=== PATIENT | male | born 1955 | race Caucasian/White ===

== ENCOUNTER 2019-04-24 12:41 | Observation (INO) | payer OTHER ==
[~2019-04-24] VITALS: Ht 172.7 cm; Wt 117.5 kg
[~2019-04-24 12:41] MED LIST: AMLODIPINE; ASPIRIN EC81 M1; ATORVASTATIN CA80 MG PO; B-COMPLEX WITH1 EAC3 PO; BENICAR; BENICAR40 MG PO; CEPHALEXIN 500500 M3 PO; CIPRO500 MG PO; COREG6.25 MG PO; FLOMAX0.4 MG PO; HUMALOG100 UNIT/1 SUBQ; HYDROCODONE-AP1 EAC6 PO; IBUPROFEN 800800 M1 PO; LANTUS; LEVEMIR100 UNIT/1 SUBQ; LIPITOR; NAPROSYN500 MG PO; NORCO 5-325 TA1 EACH PO; NORVASC5 MG PO; NOVOLOG100 UNIT/1 SUBQ; ONDANSETRON HCL4 M3 PO; PERCOCET 5-3251 EACH PO; PHENERGAN 25 MG25 M1 PO; PROSCAR 5MG TABL5 MG PO; TAMSULOSIN HCL0.4 MG PO
[2019-04-24 12:58] VITALS: BP 145/91
[2019-04-24] MEDS ORDERED: MICARDIS 80 MG80 MG PO (13:12)
[2019-04-24] MEDS ORDERED: METFORMIN HCL500 M3 PO (13:12)
[2019-04-24] MEDS ORDERED: PROSCAR 5MG TABL5 M1 PO (13:12)
[2019-04-24 13:24] LABS: ABSOLUTE BASOPHILS 0.1 thou/uL (0.0-0.2); ABSOLUTE EOSINOPHILS 0.2 thou/uL (0.0-0.7); ABSOLUTE LYMPHOCYTES 1.7 thou/uL (0.8-5.3); ABSOLUTE MONOCYTES 0.7 thou/uL (0.0-1.2); ABSOLUTE NEUTROPHILS 9.5 thou/uL (1.6-8.1); BASOPHILS 0.7 %; EOSINOPHILS 1.8 %; HEMATOCRIT 40.6 % (42.0-52.0); HEMOGLOBIN 13.9 gm/dL (14.0-18.0); LYMPHOCYTES 13.7 %; MCH 29.6 pg (26.0-34.0); MCHC 34.3 g/dL (28.0-37.0); MCV 86.5 fL (80.0-100.0); MONOCYTES 6.1 %; MPV 8.3 fl. (7.2-11.1); NUCLEATED RBCS 0 /100WBC; PLATELET COUNT* 287 thou/uL (150-400); POLYS 77.7 %; RBC 4.69 mil/uL (4.50-6.00); RDW-CV 13.6 % (10.5-14.5); WBC 12.2 thou/uL (4.0-11.0)
[2019-04-24 13:34] LABS: CREATININE 1.4 mg/dL (0.6-1.3); POTASSIUM 4.4 mmol/L (3.5-5.1)
[2019-04-24 13:46] LABS: ALBUMIN 3.8 g/dL (3.4-5.0); TOTAL BILIRUBIN 1.9 mg/dL (<0.1-1.0)
[2019-04-24 14:11] LABS: URINE BILIRUBIN NEGATIVE (Negative); URINE BLOOD TRACE (Negative); URINE CLARITY CLEAR; URINE COLOR YELLOW; URINE GLUCOSE-RANDOM NEGATIVE (Negative); URINE KETONES NEGATIVE (Negative); URINE LEUKOCYTES-REFLEX NEGATIVE (Negative); URINE NITRITE-REFLEX NEGATIVE (Negative); URINE PROTEIN 1+ (Negative); URINE SPECIFIC GRAVITY >= 1.030 (1.005-1.030); URINE UROBILINOGEN 0.2 E.U./dl (0.2-1.0)
--- NOTE | 2019-04-24 15:19 | EKG ---
[place] [address] ELECTROCARDIOGRAM REPORT Name: JOE CHAPMANJONN BANG [facility] [id number] Admission: 04/24/19 Attend Phys: Discharge: Date of : 57 Report #: [id number] THIS REPORT FOR: //name// [facility] ED Test Date: 2019-04-24 Test Time: 13:35:09 Pat Name: JOSE CHAPMAN Department: Room: Gender: M Ergonomist: TG : 1955 Requested By: Sophia Chambers Order Number: [id number] MD: Rufino Maxwell Measurements Intervals Hustler Rate: 65 P: 37 WI: 188 QRS: 25 QRSD: 97 T: 24 QT: 423 QTc: 440 Interpretive Statements Sinus rhythm Possible left atrial enlargement Baseline wander in lead(s) V5 Compared to ECG 09/16/2014 11:06:36 No significant changes Electronically Signed On 04-24-2019 15:18:44 CASHIER ASSISTANT by Rufino Maxwell [email or web address] <ELECTRONICALLY SIGNED> By: Rufino Maxwell MD, [facility] 04/24/19 1518 1335 Rufino Maxwell MD, FACC /EPI
[2019-04-24 18:28] LABS: CALCIUM 8.4 mg/dL (8.5-10.1); CREATININE 1.4 mg/dL (0.6-1.3); MAGNESIUM 1.4 mg/dL (1.8-2.4); POTASSIUM 4.5 mmol/L (3.5-5.1)
[2019-04-24 21:00] VITALS: BP 136/101
[2019-04-24 21:10] VITALS: BP 148/77
[2019-04-25 00:19] VITALS: BP 166/87
[2019-04-25 04:15] VITALS: BP 181/87
[2019-04-25 05:48] LABS: MCH 29.7 pg (26.0-34.0); MCHC 34.3 g/dL (28.0-37.0); MCV 86.5 fL (80.0-100.0); MPV 8.8 fl. (7.2-11.1); RBC 4.39 mil/uL (4.50-6.00); WBC 12.3 thou/uL (4.0-11.0)
[2019-04-25 05:53] LABS: CALCIUM 8.3 mg/dL (8.5-10.1); CREATININE 1.8 mg/dL (0.6-1.3); POTASSIUM 4.1 mmol/L (3.5-5.1)
[2019-04-25 08:05] VITALS: BP 149/79
[2019-04-25 09:39] VITALS: BP 149/79
[2019-04-25 12:24] VITALS: BP 149/79
[2019-04-25] MEDS ORDERED: NORCO 5-325 TA1 EAC1 PO (14:48)
[2019-04-25] MEDS ORDERED: KEFLEX500 M1 PO (15:51)
[2019-04-25] MEDS ORDERED: FLOMAX0.4 MG PO (15:51)
[2019-04-25 16:00] VITALS: BP 142/65
--- NOTE | 2019-04-27 15:17 | OP ---
[address] [address] OPERATIVE REPORT Name: CHAPMANJOEJONN BANG Room: [address] Kim Landon#: [id number] Admission: 04/24/19 Attend Phys: Papo Smith Discharge: 04/25/19 Date of : 57 Report #: [id number] THIS REPORT FOR: //name// CC: Papo Bradshaw DATE OF SERVICE: 04/25/2019 INDICATION FOR PROCEDURE: The patient is a 63-year-old gentleman with a long history of nephrolithiasis, who was admitted through the Emergency Department due to left-sided flank pain associated with nausea and vomiting. Evaluation revealed multiple bilateral renal stones, but he has a large 7 mm left mid ureteral calculus causing moderate obstruction. After discussing treatment options in detail, he presents today for cystoscopy with left double-J stent placement. PREOPERATIVE DIAGNOSIS: Left ureteral calculus. POSTOPERATIVE DIAGNOSIS: Left ureteral calculus. PROCEDURE: Cystoscopy, left retrograde pyelogram, and left double-J stent placement. SURGEON: Davy Flowers MD ANESTHESIA: General. COMPLICATIONS: None. ESTIMATED BLOOD LOSS: None. PROCEDURE IN DETAIL: The patient was consented for the above procedure. He was given broad spectrum IV antibiotics preoperatively. He was given general anesthetic, placed in dorsal lithotomy position. He was prepped and draped in the usual sterile fashion over the genitalia. Attempts at cystoscopy were unsuccessful due to mild meatal stenosis, so Jose Luis sounds were used to dilate the meatus to 24-Frisian without difficulty. Next, a 22-Frisian sheath and a 30-degree lens were used to perform cystoscopy. The urethra otherwise was unremarkable. 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 Examination of the bladder itself revealed no evidence of stones, ulcerations or tumors. The calcification was seen on fluoroscopy that likely represented the stone. A left retrograde pyelogram was performed, which revealed a normal ureter up to the level of the calcification and then hydronephrosis was noted above that. Based on that, a 0.035 floppy-tip guidewire was passed up the ureter, past the obstruction and into the renal pelvis without difficulty. Concentrated urine drained. Next, a 4.8 x 28 [place] [address] OPERATIVE REPORT Name: JOSE CHAPMAN Room: [address] Kim Landon#: [id number] Admission: 04/24/19 Attend Phys: Papo Smith Discharge: 04/25/19 Date of : 57 Report #: [id number] double-J stent was passed over the wire with good curl noted in the renal pelvis and in the bladder after removing the wire. This was confirmed with fluoroscopy and cystoscopy. The bladder was drained, scope was removed. Lidocaine gel was placed per urethra for local anesthesia. The patient was awakened and sent to recovery room remained in stable condition. He will be dismissed to home as soon as he is able and we will plan a ureteroscopic stone extraction in the next 7-10 days to treat his ureteral stone as well as multiple left renal stones. <ELECTRONICALLY SIGNED> By: Davy Flowers MD 04/27/19 1517 [id number] Flowers MD /nt
== END 2019-04-25 16:35 | disposition home or self-care (01) ==
LOC: M.ERS 12:41 → M.TBA-ER 16:14 → M.ORTHSURG 21:09
PROVIDERS: Nurse Practitioner Adult Health; Nurse Practitioner Family; ADMIT Family Medicine
DX: N13.2 Hydronephrosis with renal and ureteral calculous obstruction (principal); R11.2 Nausea with vomiting, unspecified; E11.42 Type 2 diabetes mellitus with diabetic polyneuropathy; E78.5 Hyperlipidemia, unspecified; E11.22 Type 2 diabetes mellitus with diabetic chronic kidney disease; I12.9 Hypertensive chronic kidney disease with stage 1 through stage 4 chronic kidney disease, or unspecified chronic kidney disease; N18.2 Chronic kidney disease, stage 2 (mild); N40.0 Benign prostatic hyperplasia without lower urinary tract symptoms

== ENCOUNTER 2021-01-21 15:04 | Emergency (ER) | payer OTHER ==
[~2021-01-21] VITALS: Ht 172.7 cm; Wt 113.4 kg
[~2021-01-21 15:04] MED LIST changes: +KEFLEX500 M1 PO; +METFORMIN HCL500 M3 PO; +MICARDIS 80 MG80 MG PO; +NORCO 5-325 TA1 EAC1 PO; +PROSCAR 5MG TABL5 M1 PO
[2021-01-21] MEDS ORDERED: PLAVIX 75 MG TA75 MG PO (15:20)
[2021-01-21] MEDS ORDERED: CEPHALEXIN500 MG PO (15:56)
[2021-01-21] MEDS ORDERED: NORCO5 PO ×2 (15:56→16:17)
[2021-01-21 16:20] VITALS: BP 151/70
== END 2021-01-21 16:21 | disposition home or self-care (01) ==
LOC: M.ERS 15:04
DX: S62.393A Other fracture of third metacarpal bone, left hand, initial encounter for closed fracture (principal); S61.412A Laceration without foreign body of left hand, initial encounter; E11.9 Type 2 diabetes mellitus without complications; Z98.890 Other specified postprocedural states; Z87.442 Personal history of urinary calculi; Z79.899 Other long term (current) drug therapy; Z79.82 Long term (current) use of aspirin; Z79.4 Long term (current) use of insulin; Z79.891 Long term (current) use of opiate analgesic; Z88.6 Allergy status to analgesic agent; Z88.5 Allergy status to narcotic agent; Z88.8 Allergy status to other drugs, medicaments and biological substances; W22.09XA Striking against other stationary object, initial encounter; Y93.89 Activity, other specified; Y92.89 Other specified places as the place of occurrence of the external cause; Y99.8 Other external cause status